=== PATIENT | male | born 1995 | race Two or more races ===

== ENCOUNTER 2024-04-09 06:00 | Day surgery (SDC) | payer BC, SELFPAY ==
[2024-04-03 09:01] VITALS: BMI 44.8
[2024-04-03 11:11] LABS: Basophils % (Auto) 0 % (0-2.5); Eosinophils # (Auto) 0.1 Thou/mm3 (0.0-0.5); Eosinophils % (Auto) 2 % (0-10); Hematocrit 42.7 % (41.0-53.0); Immature Granulocytes % (Auto) 0 % (0-0); Immature Granulocytes Auto 0.01 Thou/mm3 (0.00-0.00); Lymphocytes # (Auto) 1.9 Thou/mm3 (1.0-4.8); Lymphocytes % (Auto) 26 % (10-50); Mean Corpuscular HGB Conc 32.8 g/dl (31.0-37.0); Mean Corpuscular Hemoglobin 29.9 pg (25.0-35.0); Mean Corpuscular Volume 91 fL (80-100); Monocytes # (Auto) 0.5 Thou/mm3 (0.0-0.8); Monocytes % (Auto) 7 % (0-12); Neutrophils # (Auto) 4.8 Thou/mm3 (1.8-7.7); Neutrophils % (Auto) 65 % (37-80); Nucleated Red Blood Cell % 0 /100 WBC (0); Platelet Count 217 Thou/mm3 (140-440); RDW Standard Deviation 39.3 fL (35.1-43.9); Red Blood Count 4.69 Miln/mm3 (4.50-5.90); White Blood Count 7.4 Thou/mm3 (3.8-10.6)
[2024-04-03 11:19] LABS: Anion Gap 6 (7-16); BUN/Creatinine Ratio 15 Ratio (12-20); Blood Urea Nitrogen 12 mg/dL (9-23); Calcium 9.5 mg/dL (8.3-10.6); Carbon Dioxide 29.8 mMol/L (20.0-31.0); Chloride 104 mMol/L (98-107); Creatinine (Component) 0.8 mg/dL (0.6-1.3); Estimated Creatinine Clearance 197.2 mL/min (>60); Glucose 82 mg/dL (74-106); Osmolality,Calculated 278 (275-295); Potassium 4.2 mMol/L (3.4-5.1); Sodium 140 mMol/L (136-145); eGFR > 60 See Note
[2024-04-03 11:21] LABS: Partial Thromboplastin Time 28.7 Seconds (22.0-36.0); Prothrombin Time 10.9 Seconds (9.0-12.2)
[2024-04-09] VITALS (8 sets, daily range): BP systolic 91–152; BP diastolic 54–84; PULSE 71–88; RESP 14–20; TEMP 36.2–36.7; O2SAT 95–100; BMI 44.7
[2024-04-09] MEDS: RINGERS LACTATED 1000 ML 1,000 ML 20 ML IV (06:44)
--- NOTE | 2024-04-09 10:00 | ESOP_ITS ---
Date of Procedure 04/09/24 Pre Op Diagnosis Symptomatic varicose veins of both lower extremities Post Op Diagnosis Same as preop diagnosis Procedure Varicose vein excisions bilateral lower extremities through 49 incisions in the right leg and 40 incisions in the left leg Findings All marked varicose veins were either removed or disrupted Procedure Description With the patient standing in the preop area all varicose veins to be removed were carefully marked with a sharpie pen. The patient was then brought to the operating room and general anesthesia was induced. Both lower extremities were then sterilely prepped and draped. A timeout was performed. The operation was begun by first making a small skin alverto in the marked areas with a #11 blade then bluntly enlarging the incision with a thin mosquito clamp then sequentially excising the veins with a mosquito clamps. This was done in both lower extremities through 49 incisions on the right and 40 incisions on the left. When hemostasis was obtained and the wounds the limb was cleaned and then the incisions were reapproximated with Steri-Strips. The leg was then sterilely dr essed with gauze, Kerlix and an [place] wrap. The patient woke well from anesthesia was moved to recovery in stable condition Anesthesia other (Laryngeal mask anesthesia) Pathology / specimen Other (Bilateral lower extremity varicose veins) Estimated Blood Loss 100 Condition Stable Disposition PACU Surgeon Sunny Avilez MD Surgical Staff Operation Date: 04/09/24 08:30 Case Staff Anesthesiologist: August Loera RN First Assistant: Shayy Mckinney
--- NOTE | 2024-04-09 10:30 | SUR.PHASEI ---
1030 Patient arrived to recovery resting comfortably in [facility], on oxygen 10L via oxy mask, breathing unlabored, vital signs stable, denies pain, dressing intact to bilateral lower extremities; steri-strips, abd, kerlix roll and geo wraps, no bleeding noted, bilateral dorsalis pedis pulses present when palpated, patient has good circulation to bilateral lower extremities; skin color normal for patient and warm to touch, lung sounds clear upon auscultation, report received from Dr. Loera and Lulú ZHENG/Pedro ZHENG
--- NOTE | 2024-04-09 11:38 | SUR.PHASEII ---
1138 Patient meets discharge criteria from recovery, awake and alert, breathing unlabored, vital signs stable, denies pain, dressing intact; no bleeding noted, patient ate a jello and drinking 7up; tolerating well, denies nausea, patient assisted with dressing into his clothing by his dad and brother, discharge instructions given to patients dad and patient, his dad signed discharge instructions. Patient given all his belongings prior to discharge, transported via wheelchair and left in a private vehicle.
== END 2024-04-09 11:38 | disposition home or self-care (01) ==
PROVIDERS: PCP Family Medicine; Referring Provider Surgery Vascular Surgery; Visit Provider Surgery Vascular Surgery
PROC: (CPT 37785; principal; 2024-04-09 08:30)
DX: I83.813 Varicose veins of bilateral lower extremities with pain (principal)
CPT/HCPCS: 37766; 36415; 80048; 85025; 85610; 85730; A4217; A4649; J0690; J1885; J2250; J2405; J2704; J2765; J3010; J7120

== ENCOUNTER → 2024-11-27 | Outpatient (CLI) | payer BC, SELFPAY ==
[2024-11-27 07:06] LABS: Misc Send Out* See Sep Rpt
[2024-11-27 08:48] LABS: Glucose Estimated Average 82 mg/dL (80-131); Hemoglobin A1C 4.5 % Hgb (4.8-6.0)
[2024-11-27 08:52] LABS: Ferritin 135 ng/mL (10.5-307.3); Iron 75 mcg/dL (65-175); Percent Iron Saturation 23 % (20-55); Total Iron Binding Capacity 321 mcg/dL (250-425); Unsaturated Iron Binding 246 (225-295)
[2024-11-27 08:59] LABS: Alanine Aminotransferase 28 U/L (10-49); Albumin, Serum 4.5 gm/dL (3.5-5.0); Albumin/Globulin Ratio 1.8 (1.2-2.2); Alkaline Phosphatase 67 U/L (46-116); Anion Gap 9 (7-16); Aspartate Amino Transferase 24 U/L (0-34); BUN/Creatinine Ratio 15 Ratio (12-20); Bilirubin,Total 0.7 mg/dL (0.3-1.2); Blood Urea Nitrogen 12 mg/dL (9-23); C-Reactive Protein < 0.5 mg/dL (0.0-0.9); Calcium 9.4 mg/dL (8.3-10.6); Calcium (Corrected) 9.4 mg/dL (8.5-10.1); Carbon Dioxide 25.7 mMol/L (20.0-31.0); Cardiac Risk Estimate 3.2 RATIO (4.0-6.7); Chloride 108 mMol/L (98-107); Cholesterol 146 mg/dL (132-200); Creatinine (Component) 0.8 mg/dL (0.6-1.3); Free T4 (Free Thyroxine) 1.33 ng/dL (0.89-1.76); Globulin 2.5 gm/dL (2.3-3.5); Glucose 92 mg/dL (74-106); HDL Cholesterol 45 mg/dL (40-60); LDL Cholesterol,Calculated 90 mg/dL (0-130); Magnesium 2.1 mg/dL (1.6-2.6); Osmolality,Calculated 284 (275-295); Potassium 4.3 mMol/L (3.4-5.1); Sodium 143 mMol/L (136-145); Thyroid Stimulating Hormone 1.00 uIU/mL (0.55-4.78); Total Protein 7.0 gm/dL (5.7-8.2); Triglycerides 57 mg/dL (30-150); eGFR > 60 See Note
[2024-11-27 09:09] LABS: Creatinine MALB Rnd Ur 142 mg/dL (30-125); Microalbumin, Random Urine < 3 mg/L (0-300)
[2024-11-27 09:11] LABS: Folate 16.53 ng/mL (>5.38); Vitamin B12 531 pg/mL (211-911); Vitamin D 25 Hydroxy Total 30.1 ng/mL (7.3-40.2)
[2024-11-27 09:22] LABS: Sed Rate (ESR) 5 mm/hr (0-15)
[2024-12-02 11:20] LABS: Hepatitis B Virus DNA* NOT DETECTED
[2024-12-03 06:42] LABS: Hepatitis B DNA PCR NOT DETECTED Log IU/mL; Testosterone,Total* 435 ng/dL (250-1100); Thyroid Peroxidase Antibodies* <1 IU/mL (<9)
== END | disposition home or self-care (01) ==
PROVIDERS: PCP Registered Nurse Community Health; Referring Provider Registered Nurse Community Health; Visit Provider Registered Nurse Community Health
DX: E66.9 Obesity, unspecified (principal); R53.83 Other fatigue; Z83.3 Family history of diabetes mellitus; Z82.49 Family history of ischemic heart disease and other diseases of the circulatory system; Z11.59 Encounter for screening for other viral diseases; Z01.84 Encounter for antibody response examination
CPT/HCPCS: 36415; 80053; 80061; 82043; 82306; 82570; 82607; 82728; 82746; 83036; 83540; 83550; 83735; 84403; 84439; 84443; 85652; 86140; 86376; 87517